=== PATIENT | female | born 1965 ===

== ENCOUNTER 2016-10-13 07:46 | Observation (INO) | payer OTHER ==
--- NOTE | 2016-10-13 08:18 | ED PDOC ---
HPI: Chest Pain Time Seen by Provider: 10/13/16 07:54 Chief Complaint (Nursing): Chest Pain Chief Complaint (Provider): Chest Pain History Per: Patient History/Exam Limitations: no limitations Onset/Duration Of Symptoms: Days Current Symptoms Are (Timing): Still Present Severity: Moderate Quality: Pressure, "Pain" Associated Symptoms: Dyspnea Modifying Factors: None Exacerbating Factors: None Alleviating Factors: None Additional Complaint(s): Patient is a 51 year old female who presents to ED for mid sternal chest pain that started 2 days ago but worsened this morning. Patient reports that initially for 2 days, pain was interment, believed to be acid reflux and taking Tums. This morning pain worsened, felt like pressure on her chest with mild SOB , headache, left arm/leg numbness, generalized weakness and dizziness. Patient denies fever, sore throat or runny nose but reports a mild cough that began yesterday. Patient also reports that the pain radiates into the back, ASA taken last night. PMD: [facility] Past Medical History Reviewed: Historical Data, Nursing Documentation, Vital Signs Vital Signs: Last Vital Signs Temp 97 F L 10/13/16 07:56 Pulse 84 10/13/16 11:48 Resp 20 10/13/16 07:56 BP 180/108 H 10/13/16 07:56 Pulse Ox 98 10/13/16 11:48 - Medical History PMH: HTN Other PMH: Heart Murmur, Sarcordosis - Surgical History Surgical History: Appendectomy - Family History Family History: States: Other (Mother: Lung CA) - Living Arrangements Living Arrangements: With Family - Social History Current smoker - smoking cessation education provided: Yes Alcohol: None Drugs: Denies - Immunization History Hx Tetanus Toxoid Vaccination: No Hx Influenza Vaccination: No Hx Pneumococcal Vaccination: No - Home Medications Home Medications: Ambulatory Orders Medication Instructions Recorded Lisinopril [Zestril] 1 tab PO DAILY 10/13/16 - Allergies Allergies/Adverse Reactions: Allergies Allergy/AdvReac Type Severity Reaction Status Date / Time clarithromycin [From Biaxin] Allergy RASH Verified 10/13/16 07:56 ALLI Risk Score for UA/NSTEMI - ALLI Risk Score Age > 64: NO 3 or more CAD Risk Factors: NO Known CAD (Stenosis greater than 50%): NO Aspirin use in past 7 days: YES Severe Angina: NO EKG ST changes greater than 0.5mm: NO Positive Cardiac Marker: NO ALLI Score: 1 Risk %: 5% Wells Criteria for PE - Wells Criteria for Pulmonary Embolism Clinical Signs and Symptoms of DVT: No P.E is #1 Diagnosis, or Equally Likely: No Heart Rate >100: No Immobilization at least 3 days;Surgery previous 4 weeks: No Previous, objectively diagnosed PE or DVT: No Hemoptysis: No Malignancy w/treatment within 6 months, or palliative: No Total Score: 0 Review of Systems ROS Statement: Except As Marked, All Systems Reviewed And Found Negative Constitutional: Positive for: Weakness (generalized ). Negative for: Fever, Chills Eyes: Negative for: Vision Change Cardiovascular: Positive for: Chest Pain. Negative for: Palpitations, Light Headedness Respiratory: Positive for: Cough, Shortness of Breath Gastrointestinal: Negative for: Nausea, Vomiting Musculoskeletal: Positive for: Arm Pain, Leg Pain. Negative for: Neck Pain, Back Pain Neurological: Positive for: Headache, Dizziness. Negative for: Weakness, Numbness Physical Exam - Reviewed Nursing Documentation Reviewed: Yes Vital Signs Reviewed: Yes - Physical Exam Appears: Positive for: Uncomfortable (tearful ) Skin: Positive for: Normal Color, Warm Eye Exam: Positive for: Normal appearance Neck: Positive for: Normal, Painless ROM, Supple Cardiovascular/Chest: Positive for: Regular Rate, Rhythm, Chest Non Tender. Negative for: JVD Respiratory: Positive for: Normal Breath Sounds. Negative for: Rales, Respiratory Distress Back: Positive for: Normal Inspection Extremity: Positive for: Normal ROM. Negative for: Pedal Edema, Calf Tenderness Neurologic/Psych: Positive for: Alert, Oriented. Negative for: Motor/Sensory Deficits - Laboratory Results Result Diagrams: 10/13/16 08:22 10/13/16 08:22 - ECG ECG: Positive for: Interpreted By Ma ECG Rhythm: Positive for: Normal QRS, Normal ST Segment, Sinus Rhythm. Negative for: ST/T Changes Rate: 84 O2 Sat by Pulse Oximetry: 98 (RA) Pulse Ox Interpretation: Normal Medical Decision Making Medical Decision Making: Time: 809 Initial impression: Chest pain r/o ACS, PE and anxiety Initial plan: -- EKG -- BMP -- Troponin -- Urine preg -- CBC -- D-Dimer -- CXR -- consumer loan manager Time: 919 Blood work reviewed Hematology and Chemistry normal D-Dimer elevated Plan: -- CT-angio chest Time: 1050 CT results PROCEDURE: CT Chest with contrast (Pulmonary Angiogram) HISTORY: Chest pain COMPARISON: Plain radiographs performed the same day TECHNIQUE: Axial computed tomography images were obtained of the chest in the pulmonary arterial phase of enhancement. Coronal and sagittal reformatted images were created and reviewed. Intravenous contrast dose: 95 mL Visipaque 320 Radiation dose: Total exam DLP = 409.08 mGy-cm. FINDINGS: PULMONARY ARTERIES: There are no filling defects in the pulmonary arteries or branches to suggest acute pulmonary embolism. AORTA: The aorta is normal in caliber. No evidence of aneurysm or dissection. LUNGS: There is a 11 x 7 x 12 mm subpleural nodule in the anterior segment of the right upper lobe (series 5, image 36). Lungs are well inflated and clear without consolidation or mass. There is linear atelectasis/ scarring in the lingula and bibasilar atelectasis. PLEURAL SPACES: No effusion or pneumothorax. HEART: No cardiomegaly. No significant pericardial effusion. LYMPH NODES: No pathologic lymphadenopathy. BONES, CHEST WALL: Within normal limits for the patient's age. No fracture or destructive lesion OTHER FINDINGS: The right adrenal gland is normal. There is a 23 mm adenoma in the left adrenal gland. IMPRESSION: 1. No CT evidence for acute pulmonary embolism, aortic aneurysm or aortic dissection. 2. 11 x 7 x 12 mm subpleural nodule in the anterior segment of the right upper lobe could represent focal pleural thickening however neoplasm cannot be excluded. Correlation with PET CT/histopathology is advised for further characterization. Scribe Attestation: Documented by Ramona Melton acting as a scribe for Yonathan Benitez MD MD Scribe Attestation: All medical record entries made by the Scribe were at my direction and personally dictated by me. I have reviewed the chart and agree that the record accurately reflects my personal performance of the history, physical exam, medical decision making, and the department course for this patient. I have also personally directed, reviewed, and agree with the discharge instructions and disposition. Disposition - Clinical Impression Clinical Impression: Chest pain, Pulmonary nodule - Patient ED Disposition Is Patient to be Admitted: Yes Discussed With : Colette García Doctor Will See Patient In The: ED Counseled Patient/Family Regarding: Studies Performed, Diagnosis - Disposition Disposition Time: 11:30 Condition: FAIR - Pt Status Changed To: Hospital Disposition Of: Observation - POA Present On Arrival: None
[2016-10-13 08:25] LABS: BASO # 0.1 K/uL (0.0-0.2); BASO % 0.8 % (0.0-2.0); EOS # 0.2 K/uL (0.0-0.7); EOS % 2.6 % (0.0-4.0); HEMATOCRIT 36.9 % (34.0-47.0); LYMPH # 2.1 K/uL (1.0-4.3); LYMPH % 26.3 % (20.0-40.0); MEAN CELL VOLUME 84.3 fl (81.0-99.0); MEAN CORPUSCULAR HEMOGLOBIN 28.4 pg (27.0-31.0); MEAN CORPUSCULAR HGB CONC 33.7 g/dL (33.0-37.0); MEAN PLATELET VOLUME 8.1 fl (7.2-11.7); MONO # 0.9 K/uL (0.0-0.8); MONO % 10.9 % (0.0-10.0); NEUT # 4.8 K/uL (1.8-7.0); NEUT % 59.4 % (50.0-75.0); NRBC % 0.2 % (0.0-0.0); RED CELL DISTRIBUTION WIDTH 14.2 % (11.5-14.5); WHITE BLOOD COUNT 8.1 K/uL (4.8-10.8)
[2016-10-13 08:35] LABS: BLOOD UREA NITROGEN 17 mg/dl (7-17); CALCIUM 10.2 mg/dL (8.4-10.2); CARBON DIOXIDE 23 mmol/L (22-30); CHLORIDE 105 mmol/L (98-107); GFR AFRICAN-AMERICAN > 60; GLUCOSE,RANDOM 92 mg/dL (65-105); POTASSIUM 3.9 MMOL/L (3.6-5.0); SODIUM 141 mmol/l (132-148)
[2016-10-13] MEDS ORDERED: Iodixanol 320 MG/ML 100 ML BOTTLE IV ONE (09:29)
[2016-10-13] MEDS ORDERED: Sodium Chloride 0.9% 50 ML IV ONE (09:30)
--- NOTE | 2016-10-13 09:47 | RAD ---
HISTORY: chest pain COMPARISON: No prior. FINDINGS: LUNGS: No active pulmonary disease. PLEURA: No significant pleural effusion identified, no pneumothorax apparent. CARDIOVASCULAR: Normal. OSSEOUS STRUCTURES: No significant abnormalities. VISUALIZED UPPER ABDOMEN: Normal. OTHER FINDINGS: None. IMPRESSION: No active disease.
--- NOTE | 2016-10-13 10:55 | CT ---
PROCEDURE: CT Chest with contrast (Pulmonary Angiogram) HISTORY: Chest pain COMPARISON: Plain radiographs performed the same day TECHNIQUE: Axial computed tomography images were obtained of the chest in the pulmonary arterial phase of enhancement. Coronal and sagittal reformatted images were created and reviewed. Intravenous contrast dose: 95 mL Visipaque 320 Radiation dose: Total exam DLP = 409.08 mGy-cm. FINDINGS: PULMONARY ARTERIES: There are no filling defects in the pulmonary arteries or branches to suggest acute pulmonary embolism. AORTA: The aorta is normal in caliber. No evidence of aneurysm or dissection. LUNGS: There is a 11 x 7 x 12 mm subpleural nodule in the anterior segment of the right upper lobe (series 5, image 36). Lungs are well inflated and clear without consolidation or mass. There is linear atelectasis/ scarring in the lingula and bibasilar atelectasis. PLEURAL SPACES: No effusion or pneumothorax. HEART: No cardiomegaly. No significant pericardial effusion. LYMPH NODES: No pathologic lymphadenopathy. BONES, CHEST WALL: Within normal limits for the patient's age. No fracture or destructive lesion OTHER FINDINGS: The right adrenal gland is normal. There is a 23 mm adenoma in the left adrenal gland. IMPRESSION: 1. No CT evidence for acute pulmonary embolism, aortic aneurysm or aortic dissection. 2. 11 x 7 x 12 mm subpleural nodule in the anterior segment of the right upper lobe could represent focal pleural thickening however neoplasm cannot be excluded. Correlation with PET CT/histopathology is advised for further characterization.
--- NOTE | 2016-10-13 12:52 | CARD ---
APPROVED REPORT EKG Measurement Heart [id number] <Conclusion> Normal sinus rhythm Nonspecific ST abnormality Abnormal ECG
--- NOTE | 2016-10-13 14:08 | CP.PCM.HP ---
History of Present Illness - History of Present Illness History of Present Illness: 51 year old female with a history of HTN presenting for evaluation of chest pain. She reports left sided chest pain that has been progressively worsening over the last week. 6-01/23, cramping, no radiation, involving mid and upper left chest. Denies history of trauma. No shortness of breath, diaphoresis, dyspnea on exertion, recent changes in exercise tolerance, orthopnea, LE edema, nocturia, palpitations, pleurisy. Afebrile. No cough or sputum production. Reports recent viral gastroenteritis 1.5 weeks prior. Has not taken any medications as outpatient in order to alleviate symptoms. Denies sick contacts. No recent surgeries. No periods of immobilization. No recent travel. Present on Admission - Present on Admission Any Indicators Present on Admission: No Review of Systems - Review of Systems Review of Systems: As per HPI. Past Patient History - Past Social History Alcohol: None Drugs: Denies - CARDIAC Hx Cardiac Disorders: Yes (htn,heart murmur) - PULMONARY Hx Respiratory Disorders: No - NEUROLOGICAL Hx Neurological Disorder: No - HEENT Hx HEENT Problems: No - RENAL Hx Chronic Kidney Disease: No - ENDOCRINE/METABOLIC Hx Endocrine Disorders: Yes (sarcoidosis) - HEMATOLOGICAL/ONCOLOGICAL Hx Blood Disorders: No - INTEGUMENTARY Hx Dermatological Problems: No - MUSCULOSKELETAL/RHEUMATOLOGICAL Hx Musculoskeletal Disorders: No - GENITOURINARY/GYNECOLOGICAL Hx Genitourinary Disorders: No - PSYCHIATRIC Hx Psychophysiologic Disorder: No - SURGICAL HISTORY Hx Appendectomy: Yes - ANESTHESIA Hx Anesthesia: Yes Hx Anesthesia Reactions: No Meds Allergies/Adverse Reactions: Allergies Allergy/AdvReac Type Severity Reaction Status Date / Time clarithromycin [From Biaxin] Allergy RASH Verified 10/13/16 07:56 Physical Exam - Head Exam Head Exam: ATRAUMATIC, NORMOCEPHALIC - Eye Exam Eye Exam: EOMI, Normal appearance - ENT Exam ENT Exam: Mucous Membranes Moist - Neck Exam Neck exam: Positive for: Full Rom. Negative for: Lymphadenopathy - Respiratory Exam Respiratory Exam: Chest Wall Tenderness (Midternal and left upper chest, pectoral distribution), NORMAL BREATHING PATTERN. absent: Rales, Rhonchi, Wheezes - Cardiovascular Exam Cardiovascular Exam: REGULAR RHYTHM, +S1, +S2. absent: Diastolic murmur, Systolic Murmur - GI/Abdominal Exam GI & Abdominal Exam: Normal Bowel Sounds, Soft. absent: Distended, Tenderness - Extremities Exam Extremities exam: Positive for: full ROM, normal capillary refill, normal inspection, pedal pulses present. Negative for: calf tenderness, joint swelling , pedal edema, tenderness - Back Exam Back exam: absent: CVA tenderness (L), CVA tenderness (R) - Neurological Exam Neurological exam: Alert, CN II-XII Intact, Normal Gait, Oriented x3 Results - Vital Signs Recent Vital Signs: Last Vital Signs Temp 97 F L 10/13/16 07:56 Pulse 84 10/13/16 13:35 Resp 19 10/13/16 10:00 BP 133/89 10/13/16 10:00 Pulse Ox 98 10/13/16 11:48 - Labs Result Diagrams: 10/13/16 08:22 10/13/16 08:22 Assessment & Plan - Assessment and Plan (Free Text) Plan: 51 year old female with a history of chest pain, x1 week, worsening, 6-7/10, nonradiating, cramping. 1. Chest pain Likely MSK related Reproducible Afebrile No leukocytosis ASA given in ER Trop x1 negative CTA reviewed- low prob. for PE [id number] nodule (right, subpleural) Follow up tropx2 EKG reviewed WNL- NSR, no acute changes CXR- reviewed WNL Patient will need outpatient Bx Consider PET CT as outpatient Toradol PRN for pain 2. HTN, controlled Continue home medications 3. DVT Px SCDs
[2016-10-14 08:54] VITALS: RESP 18
--- NOTE | 2016-10-14 13:36 | CP.PCM.PN ---
<Alan Randle - Last Filed: 10/14/16 14:01> Subjective - Date & Time of Evaluation Date of Evaluation: 10/14/16 Time of Evaluation: 07:45 - Subjective Subjective: PT seen resting in bed. She states she didn't sleep well last night because of nausea and headache. Chest pain has subsided with medication. She denies any SOB, fever, or chills over night. Has been tolerating PO intake. Have discussed with the patient the findings on the CT scan and expressed the importance of follow up Pet scan/Biopsy. Objective - Vital Signs/Intake and Output Vital Signs (last 24 hours): Temp Pulse Resp BP Pulse Ox 98.2 F 58 L 18 120/79 97 10/14/16 08:00 10/14/16 09:00 10/14/16 08:00 10/14/16 08:22 10/14/16 08:00 - Medications Medications: Current Medications Lisinopril (Zestril) 10 mg PO DAILY SEJAL Last Admin: 10/14/16 08:22 Dose: 10 mg - Constitutional Appears: No Acute Distress - Head Exam Head Exam: NORMAL INSPECTION - Eye Exam Eye Exam: Normal appearance - Respiratory Exam Respiratory Exam: Clear to Ausculation Bilateral, NORMAL BREATHING PATTERN - Cardiovascular Exam Cardiovascular Exam: REGULAR RHYTHM, +S1, +S2 - Neurological Exam Neurological Exam: Alert, Awake, CN II-XII Intact, Oriented x3 - Additional Findings Additional findings: Reproducible chest pain, tender to palpate over left side of the chest Assessment and Plan - Assessment and Plan (Free Text) Assessment: 51 year old female with a history of chest pain, x1 week, worsening, 6-7/10, nonradiating, cramping. 1. Chest pain Likely MSK related ACS has been ruled out with Tropon x 3 negative Reproducible CTA reviewed- low prob. for PE [id number] nodule (right, subpleural) EKG reviewed WNL- NSR, no acute changes CXR- reviewed WNL Toradol PRN for pain 2. Incidental Lung nodule - CTA reviewed- [id number] nodule (right, subpleural) - Spoke to IR: Difficult to preform biopsy due to blood supply in mammary region. - Pet Scan vs Biopsy - Dr. Gomes consulted 3. HTN, controlled Continue home medications 4. Migraine - Regalan 10 mg PRN - Ibuprofen 600 mg PRN pain 3. DVT Px SCDs <Sole Blood - Last Filed: 10/14/16 14:04> Subjective - Date & Time of Evaluation Date of Evaluation: 10/14/16 Objective - Vital Signs/Intake and Output Vital Signs (last 24 hours): Temp Pulse Resp BP Pulse Ox 98.2 F 58 L 18 120/79 97 10/14/16 08:00 10/14/16 09:00 10/14/16 08:00 10/14/16 08:22 10/14/16 08:00 - Medications Medications: Current Medications Ibuprofen (Motrin Tab) 600 mg PO Q6 PRN PRN Reason: Headache Lisinopril (Zestril) 10 mg PO DAILY SEJAL Last Admin: 10/14/16 08:22 Dose: 10 mg Metoclopramide HCl (Reglan) 10 mg PO Q8 SEJAL - Skin Additional comments: ATTESTATION Attending note. Patient seen and examined. Case discussed with resident. Agree with plan.
--- NOTE | 2016-10-14 14:31 | CP.PCM.DIS ---
<Alan Randle - Last Filed: 10/14/16 18:29> Provider - Provider Date of Admission: 10/13/16 11:33 Attending physician: Colette García MD Time Spent in preparation of Discharge (in minutes): 30 Hospital Course - Lab Results Lab Results: Most Recent Lab Values WBC 8.1 K/uL (4.8-10.8) 10/13/16 08:22 RBC 4.38 Mil/uL (3.80-5.20) 10/13/16 08:22 Hgb 12.4 g/dL (12.0-16.0) 10/13/16 08:22 Hct 36.9 % (34.0-47.0) 10/13/16 08:22 MCV 84.3 fl (81.0-99.0) 10/13/16 08:22 MCH 28.4 pg (27.0-31.0) 10/13/16 08:22 MCHC 33.7 g/dL (33.0-37.0) 10/13/16 08:22 RDW 14.2 % (11.5-14.5) 10/13/16 08:22 Plt Count 328 K/uL (130-400) 10/13/16 08:22 MPV 8.1 fl (7.2-11.7) 10/13/16 08:22 Neut % (Auto) 59.4 % (50.0-75.0) 10/13/16 08:22 Lymph % (Auto) 26.3 % (20.0-40.0) 10/13/16 08:22 [place] % (Auto) 10.9 % (0.0-10.0) H 10/13/16 08:22 Eos % (Auto) 2.6 % (0.0-4.0) 10/13/16 08:22 Baso % (Auto) 0.8 % (0.0-2.0) 10/13/16 08:22 Neut # 4.8 K/uL (1.8-7.0) 10/13/16 08:22 Lymph # 2.1 K/uL (1.0-4.3) 10/13/16 08:22 [place] # 0.9 K/uL (0.0-0.8) H 10/13/16 08:22 Eos # 0.2 K/uL (0.0-0.7) 10/13/16 08:22 Baso # 0.1 K/uL (0.0-0.2) 10/13/16 08:22 D-Dimer, Quantitative 0.83 mg/L FEU (0-0.50) H 10/13/16 08:22 Sodium 141 mmol/l (132-148) 10/13/16 08:22 Potassium 3.9 MMOL/L (3.6-5.0) 10/13/16 08:22 Chloride 105 mmol/L (98-107) 10/13/16 08:22 Carbon Dioxide 23 mmol/L (22-30) 10/13/16 08:22 Anion Gap 18 (10-20) 10/13/16 08:22 BUN 17 mg/dl (7-17) 10/13/16 08:22 Creatinine 0.7 mg/dL (0.7-1.2) 10/13/16 08:22 Est GFR ( Amer) > 60 10/13/16 08:22 Est GFR (Non-Af Amer) > 60 10/13/16 08:22 Random Glucose 92 mg/dL (65-105) 10/13/16 08:22 Calcium 10.2 mg/dL (8.4-10.2) 10/13/16 08:22 Troponin I < 0.0120 ng/mL (0.00-0.120) 10/14/16 00:05 - Hospital Course Hospital Course: 51 YO F w/ h/o HTN presents was admitted for chest pain and was worked up thoroughly - Workup: ACS has been ruled out with Tropon x 3 negative Reproducible CTA reviewed- low prob. for PE [id number] nodule (right, subpleural) EKG reviewed WNL- NSR, no acute changes CXR- reviewed WNL Pt has been ruled out for ACS. She is feeling better, pain is relieved with medication. Patient is stable for discharge. - Take naproxen 500mg for pain - F/U with [facility] on 10/28/16 @ 1:20 W/ Dr. Persaud - F/U with [facility] to get PET scan of chest - F/U with Dr. Gomes outpatient Discharge Exam - Head Exam Head Exam: NORMAL INSPECTION - Eye Exam Eye Exam: Normal appearance - Respiratory Exam Respiratory Exam: Clear to PA & Lateral, NORMAL BREATHING PATTERN - Cardiovascular Exam Cardiovascular Exam: REGULAR RHYTHM, +S1, +S2 Additional comments: Left sided tenderness on palpation - GI/Abdominal Exam GI & Abdominal Exam: Normal Bowel Sounds. absent: Tenderness - Neurological Exam Neurological exam: CN II-XII Intact, Oriented x3 Discharge Plan - Discharge Medications Prescriptions: Naproxen [Naprosyn] 500 mg PO Q12 #28 tablet - Follow Up Plan Condition: GOOD Disposition: HOME/ ROUTINE Instructions: Chest Pain (DC) Additional Instructions: - Patient is stable for discharge. - Take naproxen 500mg for pain - F/U with [facility] on 10/28/16 @ 1:20 W/ Dr. Persaud - F/U with [facility] to get PET scan of chest - F/U with Dr. Gomes outpatient - If symptoms worsen return to the ER Referrals: [facility] [Outside] Fei Gomes MD [Staff Provider] - <Sole Blood - Last Filed: 10/15/16 09:14> Provider - Provider Date of Admission: 10/13/16 11:33 Attending physician: Colette García MD Hospital Course - Lab Results Lab Results: Most Recent Lab Values WBC 8.1 K/uL (4.8-10.8) 10/13/16 08:22 RBC 4.38 Mil/uL (3.80-5.20) 10/13/16 08:22 Hgb 12.4 g/dL (12.0-16.0) 10/13/16 08:22 Hct 36.9 % (34.0-47.0) 10/13/16 08:22 MCV 84.3 fl (81.0-99.0) 10/13/16 08:22 MCH 28.4 pg (27.0-31.0) 10/13/16 08:22 MCHC 33.7 g/dL (33.0-37.0) 10/13/16 08:22 RDW 14.2 % (11.5-14.5) 10/13/16 08:22 Plt Count 328 K/uL (130-400) 10/13/16 08:22 MPV 8.1 fl (7.2-11.7) 10/13/16 08:22 Neut % (Auto) 59.4 % (50.0-75.0) 10/13/16 08:22 Lymph % (Auto) 26.3 % (20.0-40.0) 10/13/16 08:22 [place] % (Auto) 10.9 % (0.0-10.0) H 10/13/16 08:22 Eos % (Auto) 2.6 % (0.0-4.0) 10/13/16 08:22 Baso % (Auto) 0.8 % (0.0-2.0) 10/13/16 08:22 Neut # 4.8 K/uL (1.8-7.0) 10/13/16 08:22 Lymph # 2.1 K/uL (1.0-4.3) 10/13/16 08:22 [place] # 0.9 K/uL (0.0-0.8) H 10/13/16 08:22 Eos # 0.2 K/uL (0.0-0.7) 10/13/16 08:22 Baso # 0.1 K/uL (0.0-0.2) 10/13/16 08:22 D-Dimer, Quantitative 0.83 mg/L FEU (0-0.50) H 10/13/16 08:22 Sodium 141 mmol/l (132-148) 10/13/16 08:22 Potassium 3.9 MMOL/L (3.6-5.0) 10/13/16 08:22 Chloride 105 mmol/L (98-107) 10/13/16 08:22 Carbon Dioxide 23 mmol/L (22-30) 10/13/16 08:22 Anion Gap 18 (10-20) 10/13/16 08:22 BUN 17 mg/dl (7-17) 10/13/16 08:22 Creatinine 0.7 mg/dL (0.7-1.2) 10/13/16 08:22 Est GFR ( Amer) > 60 10/13/16 08:22 Est GFR (Non-Af Amer) > 60 10/13/16 08:22 Random Glucose 92 mg/dL (65-105) 10/13/16 08:22 Calcium 10.2 mg/dL (8.4-10.2) 10/13/16 08:22 Troponin I < 0.0120 ng/mL (0.00-0.120) 10/14/16 00:05 Discharge Exam - Skin Additional comments: ATTESTATION ATTENDING STATEMENT - PATIENT SEEN AND EXAMINED. CASE DISCUSSED WITH RESIDENT AND AGREE WITH PLAN. PATIENT DISCHARGED TO OUTPATIENT FOLLOW UP.
[2016-10-14 15:23] VITALS: BP 159/98; PULSE 74; TEMP 98; O2SAT 99
--- NOTE | 2016-10-15 21:32 | CP.PCM.CON ---
History of Present Illness - History of Present Illness History of Present Illness: 51 year old female with a history of tobacco abuse, HTN, sarcoidosis, admitted with chest pain, found to have a lung mass. The patient denies shortness of breath and cough. Her weight is stable and maintains a good appetite. CT chest revealed a RUL 1.2cm subpleural based nodule. Past medical history: tobacco abuse, HTN, sarcoidosis Past surgical history: none Family history: Sister with breast cancer in her 40s, sister with breast cancer and ovarian cancer in 40s Social history: 1/2pppd x 20 years, denies alcohol, and illicit drug use. Allergies: Clarithromycin Review of systems: All remaining review of systems including HEENT, cardiovascular, respiratory, gastrointestinal, genitourinary, musculoskeletal, dermatologic, neurologic, and psychiatric are negative unless mentioned in the HPI. Past Patient History - Past Social History Alcohol: None Drugs: Denies - CARDIAC Hx Cardiac Disorders: Yes (htn,heart murmur) - PULMONARY Hx Respiratory Disorders: No - NEUROLOGICAL Hx Neurological Disorder: No - HEENT Hx HEENT Problems: No - RENAL Hx Chronic Kidney Disease: No - ENDOCRINE/METABOLIC Hx Endocrine Disorders: Yes (sarcoidosis) - HEMATOLOGICAL/ONCOLOGICAL Hx Blood Disorders: No - INTEGUMENTARY Hx Dermatological Problems: No - MUSCULOSKELETAL/RHEUMATOLOGICAL Hx Musculoskeletal Disorders: No - GENITOURINARY/GYNECOLOGICAL Hx Genitourinary Disorders: No - PSYCHIATRIC Hx Psychophysiologic Disorder: No - SURGICAL HISTORY Hx Appendectomy: Yes - ANESTHESIA Hx Anesthesia: Yes Hx Anesthesia Reactions: No Meds Home Medications: Home Medication List Medication Instructions Recorded Confirmed Type Naproxen [Naprosyn] 500 mg PO Q12 #28 tablet 10/14/16 Rx Allergies/Adverse Reactions: Allergies Allergy/AdvReac Type Severity Reaction Status Date / Time clarithromycin [From Biaxin] Allergy RASH Verified 10/13/16 07:56 Physical Exam - Head Exam Head Exam: ATRAUMATIC - Eye Exam Eye Exam: Normal appearance - ENT Exam ENT Exam: Mucous Membranes Dry - Respiratory Exam Respiratory Exam: NORMAL BREATHING PATTERN - Cardiovascular Exam Cardiovascular Exam: +S1, +S2 - GI/Abdominal Exam GI & Abdominal Exam: Normal Bowel Sounds - Extremities Exam Extremities exam: Positive for: normal inspection - Neurological Exam Neurological exam: Oriented x3 - Psychiatric Exam Psychiatric exam: Normal Affect, Normal Mood - Skin Skin Exam: Warm Results - Vital Signs Recent Vital Signs: Last Vital Signs Temp 98.0 F 03/31/17 12:00 Pulse 74 10/14/16 12:00 Resp 18 10/14/16 12:00 BP 159/98 H 10/14/16 12:00 Pulse Ox 99 10/14/16 12:00 - Labs Result Diagrams: 10/13/16 08:22 10/13/16 08:22 Assessment & Plan - Assessment and Plan (Free Text) Assessment: Lung nodule - recommend IR biopsy Tobacco abuse - discussed smoking cessation at length with the patient Family history of breast/ovarian cancer - recommend the patient be offered BRCA testing Thank you for this interesting consult.
== END 2016-10-14 16:15 | disposition home or self-care (01) ==
LOC: H.ER 07:46 → H.ERHOLD 11:33 → H.TEL 13:50
PROVIDERS: ADMIT Family Medicine Geriatric Medicine; ATTEND Family Medicine Geriatric Medicine
DX: R07.9 Chest pain, unspecified (principal); R91.1 Solitary pulmonary nodule; I10 Essential (primary) hypertension; D86.9 Sarcoidosis, unspecified; F17.200 Nicotine dependence, unspecified, uncomplicated; Z80.3 Family history of malignant neoplasm of breast; Z80.41 Family history of malignant neoplasm of ovary; G43.909 Migraine, unspecified, not intractable, without status migrainosus

== ENCOUNTER 2017-03-22 12:38 | Observation (INO) | payer SELFPAY ==
[2017-03-22 13:47] LABS: BASO # 0.1 K/uL (0.0-0.2); BASO % 0.8 % (0.0-2.0); EOS # 0.2 K/uL (0.0-0.7); EOS % 2.2 % (0.0-4.0); HEMATOCRIT 40.1 % (34.0-47.0); LYMPH # 1.6 K/uL (1.0-4.3); MEAN CELL VOLUME 86.6 fl (81.0-99.0); MEAN CORPUSCULAR HEMOGLOBIN 28.9 pg (27.0-31.0); MEAN CORPUSCULAR HGB CONC 33.3 g/dL (33.0-37.0); MEAN PLATELET VOLUME 7.8 fl (7.2-11.7); MONO # 0.7 K/uL (0.0-0.8); NEUT # 4.6 K/uL (1.8-7.0); NRBC % 0.1 % (0.0-0.0); RED CELL DISTRIBUTION WIDTH 14.2 % (11.5-14.5); WHITE BLOOD COUNT 7.1 K/uL (4.8-10.8)
[2017-03-22 14:00] LABS: ALB/GLOB RATIO 1.2 (1.0-2.1); ALKALINE PHOSPHATASE 62 U/L (38-126); ALT/SGPT 19 U/L (9-52); AST/SGOT 39 U/L (14-36); BILIRUBIN,TOTAL 1.1 mg/dl (0.2-1.3); BLOOD UREA NITROGEN 15 mg/dl (7-17); CALCIUM 10.8 mg/dL (8.4-10.2); CARBON DIOXIDE 23 mmol/L (22-30); CHLORIDE 101 mmol/L (98-107); GFR AFRICAN-AMERICAN > 60; GLUCOSE,RANDOM 101 mg/dL (65-105); SODIUM 137 mmol/l (132-148); TOTAL PROTEIN 9.8 G/DL (6.3-8.2)
[2017-03-22 14:14] LABS: POTASSIUM 4.7 MMOL/L (3.6-5.0)
--- NOTE | 2017-03-22 14:37 | RAD ---
HISTORY: COMPARISON: 10/13/2016. TECHNIQUE: Chest PA and lateral FINDINGS: LINES AND TUBES: None. LUNG AND PLEURA: The lungs are well inflated and clear. HEART AND MEDIASTINUM: The heart is not enlarged. The hilar and mediastinal contours are within normal limits. SKELETAL STRUCTURES: The bony structures are within normal limits for the patient's age. VISUALIZED UPPER ABDOMEN: Normal. OTHER FINDINGS: There is chronic elevation of the left hemidiaphragm. IMPRESSION: No active pulmonary disease.
--- NOTE | 2017-03-22 15:11 | ED PDOC ---
HPI: Chest Pain Time Seen by Provider: 03/22/17 13:00 Chief Complaint (Nursing): Chest Pain Chief Complaint (Provider): chest pain History Per: Patient History/Exam Limitations: no limitations Onset/Duration Of Symptoms: Days (x 3) Additional Complaint(s): Sheela Gaston is a 51 year old female, with a previous medical history of anxiety and ovarian cysts, who presents to ED for left sided chest pain ongoing for 3 days. She reports chest pain is now radiating to the right side of her chest. She denies any shortness of breath, fever, chills, cough, vomiting or abdominal pain. She also reports a headache which she states is consistent with previous headaches. Family reports that patient has been exposed to higher levels of stress causing her to become more anxious lately. PMD: none provided Past Medical History Reviewed: Historical Data, Nursing Documentation, Vital Signs Vital Signs: Last Vital Signs Temp 97.9 F 03/23/17 12:20 Pulse 63 03/23/17 12:20 Resp 18 03/23/17 12:20 BP 105/71 03/23/17 12:20 Pulse Ox 98 03/23/17 14:40 - Medical History PMH: Anxiety, HTN Denies: Chronic Kidney Disease - Surgical History Surgical History: Appendectomy - Family History Family History: States: Unknown Family Hx - Social History Current smoker - smoking cessation education provided: No Alcohol: None Drugs: Denies - Immunization History Hx Tetanus Toxoid Vaccination: No Hx Influenza Vaccination: No Hx Pneumococcal Vaccination: No - Home Medications Home Medications: Ambulatory Orders Medication Instructions Recorded HCTZ/Losartan Potassium [Hyzaar 1 tab PO DAILY 03/22/17 12.5 mg-50 mg] Naproxen [Naprosyn] 500 mg PO BID PRN 03/22/17 - Allergies Allergies/Adverse Reactions: Allergies Allergy/AdvReac Type Severity Reaction Status Date / Time clarithromycin [From Biaxin] Allergy RASH Verified 10/13/16 07:56 Review of Systems ROS Statement: Except As Marked, All Systems Reviewed And Found Negative Constitutional: Negative for: Fever, Chills Cardiovascular: Positive for: Chest Pain Respiratory: Negative for: Cough, Shortness of Breath Gastrointestinal: Negative for: Vomiting, Abdominal Pain Physical Exam - Reviewed Nursing Documentation Reviewed: Yes Vital Signs Reviewed: Yes - Physical Exam Appears: Positive for: Well, Non-toxic, No Acute Distress Cardiovascular/Chest: Positive for: Regular Rate, Rhythm, Chest Non Tender ( tenderness to the left chest wall) Respiratory: Positive for: CNT, Normal Breath Sounds Gastrointestinal/Abdominal: Positive for: Normal Exam, Bowel Sounds, Soft. Negative for: Tenderness Extremity: Positive for: Normal ROM Neurologic/Psych: Positive for: Alert, Oriented - Laboratory Results Result Diagrams: 03/23/17 05:00 03/23/17 05:00 - ECG O2 Sat by Pulse Oximetry: 98 (RA) Pulse Ox Interpretation: Normal Medical Decision Making Medical Decision Making: Initial Plan: chest pain rule out pneumonia rule out CAD rule out PE * CXR * troponin I * motrin 600 mg PO * reglan 10 mg IV * reevaluation Time: 1600 --Upon re-evaluation, patient has ongoing pain. --CT Angio Chest ordered to rule out pulmonary embolism. --Admitted to [facility] for chest pain. ASA ct shows no PE see full report pt to be admitted to [facility] for cardiac monitoring to rule out malignant arrhytmia Scribe Attestation: Documented by Elisa Lester, acting as a scribe for Deloris Paige MD. Provider Scribe Attestation: All medical record entries made by the Scribe were at my direction and personally dictated by me. I have reviewed the chart and agree that the record accurately reflects my personal performance of the history, physical exam, medical decision making, and the department course for this patient. I have also personally directed, reviewed, and agree with the discharge instructions and disposition. Disposition - Clinical Impression Clinical Impression: Acute chest pain - Patient ED Disposition Is Patient to be Admitted: Yes Counseled Patient/Family Regarding: Studies Performed, Diagnosis, Need For Followup - Disposition Disposition Time: 15:00 Condition: STABLE
[2017-03-22] MEDS ORDERED: Sodium Chloride 0.9% 50 ML IV ONE (17:12)
[2017-03-22] MEDS ORDERED: Iodixanol 320 MG/ML 100 ML BOTTLE IV ONE (17:12)
--- NOTE | 2017-03-22 18:20 | CT ---
PROCEDURE: CT Chest with contrast (Pulmonary Angiogram) HISTORY: Chest pain, rule out PE COMPARISON: Plain radiographs performed the same day and CT angio chest from 10/13/2016 TECHNIQUE: Axial computed tomography images were obtained of the chest in the pulmonary arterial phase of enhancement. Coronal and sagittal reformatted images were created and reviewed. Intravenous contrast dose: 80 mL Visipaque 320 Radiation dose: Total exam DLP = 384.64 mGy-cm. This CT exam was performed using one or more of the following dose reduction techniques: Automated exposure control, adjustment of the mA and/or kV according to patient size, and/or use of iterative reconstruction technique. FINDINGS: PULMONARY ARTERIES: There are no filling defects in the pulmonary arteries to suggest acute pulmonary embolism. AORTA: The aorta is not dilated. No thoracic aortic aneurysm. LUNGS: The lungs are well inflated. No mass or consolidation. There is linear atelectasis/scarring in the lingula and dependent atelectasis in the lower lobes. PLEURAL SPACES: No effusion or pneumothorax. HEART: The heart is normal in size. No pericardial effusion. LYMPH NODES: There are prominent subcentimeter mediastinal lymph nodes and mild bilateral hilar lymphadenopathy not significantly changed since the prior examination. BONES, CHEST WALL: Unremarkable. No fracture or destructive lesion OTHER FINDINGS: There is mild thickening of the adrenal glands without discrete nodules. Otherwise, the visualized abdominal structures are within normal limits. IMPRESSION: 1. No CT evidence for acute pulmonary embolism. 2. No evidence of consolidation, pneumothorax or pleural effusion. 3. Prominent subcentimeter mediastinal lymph nodes and mild hilar lymphadenopathy, nonspecific and may be reactive, infectious, or inflammatory in etiology. Clinical correlation and follow-up is advised
--- NOTE | 2017-03-22 19:11 | CP.PCM.HP ---
History of Present Illness - History of Present Illness History of Present Illness: CC/HPI: Pt. see in the E.D. Pt. presents to E.D. for evaluation of chest pain. Pt. states she was sleeping at home but was awoken by chest pain shortly before arrival to the E.D. via her boyfriend's car. Pt. states pain initially started on Monday and was intermittent but now is persistent since being awaken by the pain. Pain is described as pressure like in quality, localized to sternal area, and severe in intensity. Pt. denies any fall, trauma, injury, immobilization, recent surgery, leg swelling, fever, or chills. Pt. states has been taking Tyleno 325mgl 2 tabs, ASA 81mg 2tabs daily w/o relief. ROS: Pt. reports having heart burn since Monday as well and is taking 4 tums for it daily. Pt. denies any hemoptysis, hematemesis, melena, hematochezia, or abdominal pain. PMHx: Sarcodosis, HTN, Left ovarian cyst, Obesity, Gastritis PSHx: Appendectomy, Laprooscopy ScHx: TOB-occasional ETOH-occasional DRUG-none OBGHx: Period irregular, LMP on January 09 to February 15 (Urine preg negative) FMHx: Breast Cancer, Ovarian Cancer Allergies: Clarithromycin Home Meds: See med list PMD: [facility] E.D Course: * CXR * troponin I * motrin 600 mg PO * reglan 10 mg IV * reevaluation Time: 1600 --Upon re-evaluation, patient has ongoing pain. --CT Angio Chest ordered to rule out pulmonary embolism. Present on Admission - Present on Admission Any Indicators Present on Admission: No History of DVT/PE: No History of Uncontrolled Diabetes: No Urinary Catheter: No Decubitus Ulcer Present: No Review of Systems - Review of Systems Review of Systems: See HPI Past Patient History - Past Social History Smoking Status: Current Some Days Smoker - CARDIAC Hx Hypertension: Yes - PULMONARY Hx Respiratory Disorders: No - NEUROLOGICAL Hx Neurological Disorder: No - HEENT Hx HEENT Problems: No - RENAL Hx Chronic Kidney Disease: No - ENDOCRINE/METABOLIC Hx Endocrine Disorders: Yes (sarcoidosis) - HEMATOLOGICAL/ONCOLOGICAL Hx Blood Disorders: No - INTEGUMENTARY Hx Dermatological Problems: No - MUSCULOSKELETAL/RHEUMATOLOGICAL Hx Musculoskeletal Disorders: No - GENITOURINARY/GYNECOLOGICAL Hx Genitourinary Disorders: No - PSYCHIATRIC Hx Anxiety: Yes - SURGICAL HISTORY Hx Appendectomy: Yes - ANESTHESIA Hx Anesthesia: Yes Hx Anesthesia Reactions: No Meds Allergies/Adverse Reactions: Allergies Allergy/AdvReac Type Severity Reaction Status Date / Time clarithromycin [From Biaxin] Allergy RASH Verified 10/13/16 07:56 Physical Exam - Constitutional Appears: No Acute Distress - Eye Exam Eye Exam: Normal appearance. absent: Scleral icterus - ENT Exam ENT Exam: Mucous Membranes Moist - Neck Exam Neck exam: Positive for: Full Rom - Respiratory Exam Respiratory Exam: Clear to Auscultation Bilateral, NORMAL BREATHING PATTERN - Cardiovascular Exam Cardiovascular Exam: REGULAR RHYTHM, +S1, +S2 Additional comments: + Reproducible chest pain on palpation of left 3rd/4th costo-chondral junction - GI/Abdominal Exam GI & Abdominal Exam: Tenderness (Moderate epigastric tenderness). absent: Guarding, Rebound, Rigid - Extremities Exam Extremities exam: Positive for: normal capillary refill, normal inspection, pedal pulses present. Negative for: tenderness - Back Exam Back exam: muscle spasm. absent: CVA tenderness (L), CVA tenderness (R), paraspinal tenderness - Neurological Exam Neurological exam: Alert, Oriented x3 - Psychiatric Exam Psychiatric exam: Normal Affect, Normal Mood - Skin Skin Exam: Normal Color, Warm Results - Vital Signs Recent Vital Signs: Last Vital Signs Temp 98.9 F 03/22/17 18:34 Pulse 76 03/22/17 18:34 Resp 17 03/22/17 18:34 BP 134/84 03/22/17 18:34 Pulse Ox 98 03/22/17 18:34 - Labs Result Diagrams: 03/22/17 13:15 03/22/17 13:15 Assessment & Plan - Assessment and Plan (Free Text) Assessment: 51 y.o. female admitted for chest pain. Chest pain of unclear etiology most likely non-cardiac- CT-angiogram negative for Pulmonary Embolism CXR negative for any acute pathology 1- Admit to Tele 2- Troponin x 1 negative Repeat x 2 Q8 hrs 3- Repeat EKG in the a.m. Epigastric abdominal pain on physical 1- Pepcid 40mg IVP 2- CBC in the a.m. 3- BMP in the a.m. HTN 1- c/w Lisinopril-HCTHZ 50/12.5 DVT 1- SCD for now Diet 1- Heart Healthy/[place] diet
[2017-03-23 06:44] LABS: HEMATOCRIT 36.9 % (34.0-47.0); MEAN CELL VOLUME 86.7 fl (81.0-99.0); MEAN CORPUSCULAR HEMOGLOBIN 28.7 pg (27.0-31.0); MEAN CORPUSCULAR HGB CONC 33.1 g/dL (33.0-37.0); WHITE BLOOD COUNT 5.9 K/uL (4.8-10.8)
[2017-03-23 06:50] LABS: BLOOD UREA NITROGEN 19 mg/dl (7-17); CALCIUM 10.2 mg/dL (8.4-10.2); CARBON DIOXIDE 23 mmol/L (22-30); CHLORIDE 101 mmol/L (98-107); GFR AFRICAN-AMERICAN 58; GLUCOSE,RANDOM 89 mg/dL (65-105); POTASSIUM 3.9 MMOL/L (3.6-5.0); SODIUM 137 mmol/l (132-148)
[2017-03-23] MEDS ORDERED: HCTZ/Losartan 12.5/50 Tab PO SCH (09:00)
[2017-03-23 16:23] VITALS: BP 113/76; PULSE 84; RESP 14; TEMP 99; O2SAT 95
--- NOTE | 2017-03-23 17:10 | CP.PCM.DIS ---
Provider - Provider Date of Admission: 03/22/17 16:05 Attending physician: Colette García MD Primary care physician: [facility], Dr Harper. Consults: None. Time Spent in preparation of Discharge (in minutes): 30 Hospital Course - Lab Results Lab Results: Most Recent Lab Values WBC 5.9 K/uL (4.8-10.8) 03/23/17 05:00 RBC 4.26 Mil/uL (3.80-5.20) 03/23/17 05:00 Hgb 12.2 g/dL (12.0-16.0) 03/23/17 05:00 Hct 36.9 % (34.0-47.0) 03/23/17 05:00 MCV 86.7 fl (81.0-99.0) 03/23/17 05:00 MCH 28.7 pg (27.0-31.0) 03/23/17 05:00 MCHC 33.1 g/dL (33.0-37.0) 03/23/17 05:00 RDW 14.0 % (11.5-14.5) 03/23/17 05:00 Plt Count 298 K/uL (130-400) 03/23/17 05:00 MPV 7.8 fl (7.2-11.7) 03/22/17 13:15 Neut % (Auto) 65.0 % (50.0-75.0) 03/22/17 13:15 Lymph % (Auto) 22.0 % (20.0-40.0) 03/22/17 13:15 Coffee % (Auto) 10.0 % (0.0-10.0) 03/22/17 13:15 Eos % (Auto) 2.2 % (0.0-4.0) 03/22/17 13:15 Baso % (Auto) 0.8 % (0.0-2.0) 03/22/17 13:15 Neut # 4.6 K/uL (1.8-7.0) 03/22/17 13:15 Lymph # 1.6 K/uL (1.0-4.3) 03/22/17 13:15 Coffee # 0.7 K/uL (0.0-0.8) 03/22/17 13:15 Eos # 0.2 K/uL (0.0-0.7) 03/22/17 13:15 Baso # 0.1 K/uL (0.0-0.2) 03/22/17 13:15 Sodium 137 mmol/l (132-148) 03/23/17 05:00 Potassium 3.9 MMOL/L (3.6-5.0) 03/23/17 05:00 Chloride 101 mmol/L (98-107) 03/23/17 05:00 Carbon Dioxide 23 mmol/L (22-30) 03/23/17 05:00 Anion Gap 16 (10-20) 03/23/17 05:00 BUN 19 mg/dl (7-17) H 03/23/17 05:00 Creatinine 1.2 mg/dL (0.7-1.2) 03/23/17 05:00 Est GFR ( Amer) 58 03/23/17 05:00 Est GFR (Non-Af Amer) 48 03/23/17 05:00 Random Glucose 89 mg/dL (65-105) 03/23/17 05:00 Calcium 10.2 mg/dL (8.4-10.2) 03/23/17 05:00 Total Bilirubin 1.1 mg/dl (0.2-1.3) 03/22/17 13:15 AST 39 U/L (14-36) H 03/22/17 13:15 ALT 19 U/L (9-52) 03/22/17 13:15 Alkaline Phosphatase 62 U/L (38-126) 03/22/17 13:15 Troponin I < 0.0120 ng/mL (0.00-0.120) 03/23/17 05:00 Total Protein 9.8 G/DL (6.3-8.2) H 03/22/17 13:15 Albumin 5.3 g/dL (3.5-5.0) H 03/22/17 13:15 Globulin 4.5 gm/dL (2.2-3.9) H 03/22/17 13:15 Albumin/Globulin Ratio 1.2 (1.0-2.1) 03/22/17 13:15 - Hospital Course Hospital Course: 51 y.o. female with a PMHx of sarcoidosis admitted for acute intractable chest pain. EKG was unremarkable. CT-angiogram negative for Pulmonary Embolism. CXR negative for any acute pulmonary pathology. Pt complained also of burning epigastric pain and acid reflux. Pt was managed with Pepcid and reflux precautions. Pt discharged stable, with NO pain. Pt was instructed not to eat before bed and avoidance of fatty meals, caffeine and spicy food. -Omeprazole 20 mg PO daily was prescribed. -Pt was instructed to follow up w/ Dr Harper at [facility] on 04/05/17 at 10 am. - Date & Time of H&P Date of H&P: 03/22/17 Time of H&P: 19:06 Discharge Exam - Head Exam Head Exam: NORMAL INSPECTION - Eye Exam Eye Exam: EOMI, PERRL - Neck Exam Neck exam: Full Rom - Respiratory Exam Respiratory Exam: Clear to PA & Lateral, NORMAL BREATHING PATTERN, UNREMARKABLE - Cardiovascular Exam Cardiovascular Exam: REGULAR RHYTHM, +S1, +S2 - GI/Abdominal Exam GI & Abdominal Exam: Normal Bowel Sounds, Unremarkable. absent: Distended, Guarding Discharge Plan - Follow Up Plan Condition: STABLE Disposition: HOME/ ROUTINE Instructions: Chest Pain (DC), Gastroesophageal Reflux Disease (DC) Additional Instructions: -Follow up with PMD on 04/05/[address] at [address] Harper. -Follow a healthy diet with avoidance of fatty meals, caffeine and spicy food. -Avoid eating 2 hours before bed. -Take Omeprazole 20 mg Tab by mouth daily on an empty stomach for a few hours ( on awakening) and 30 minutes before eating. -Return to ER if severe chest pain, shortness of breath or palpitations.
--- NOTE | 2017-03-24 11:34 | CARD ---
APPROVED REPORT EKG Measurement Heart [id number] [id number] <Conclusion> Normal sinus rhythm Nonspecific ST abnormality Abnormal ECG
--- NOTE | 2017-03-24 11:38 | CARD ---
APPROVED REPORT EKG Measurement Heart [id number] 156P0 [id number] <Conclusion> Normal sinus rhythm Normal ECG
== END 2017-03-23 16:21 | disposition home or self-care (01) ==
LOC: H.ER 12:38 → H.ERHOLD 16:05 → H.TEL 22:25
PROVIDERS: ADMIT Family Medicine Geriatric Medicine; ATTEND Family Medicine Geriatric Medicine
DX: R07.89 Other chest pain (principal); R10.13 Epigastric pain; I10 Essential (primary) hypertension; F41.9 Anxiety disorder, unspecified; D86.9 Sarcoidosis, unspecified; K21.9 Gastro-esophageal reflux disease without esophagitis; K29.70 Gastritis, unspecified, without bleeding; E66.9 Obesity, unspecified; F17.200 Nicotine dependence, unspecified, uncomplicated; Z23 Encounter for immunization; Z79.82 Long term (current) use of aspirin
CPT/HCPCS: 36415; 71020; 71275; 80048; 80053; 81025; 84484; 85025; 85027; 96374; 99285; G0378; J1885; Q9967

== ENCOUNTER 2017-08-18 14:47 | Emergency (ER) | payer SELFPAY ==
--- NOTE | 2017-08-18 17:31 | RAD ---
HISTORY: cough COMPARISON: Comparison is made with 03/22/2017 TECHNIQUE: Chest PA and lateral FINDINGS: LUNGS: No active pulmonary disease. PLEURA: No significant pleural effusion identified. No pneumothorax apparent. CARDIOVASCULAR: Normal. OSSEOUS STRUCTURES: No significant abnormalities. VISUALIZED UPPER ABDOMEN: Normal. OTHER FINDINGS: None. IMPRESSION: No active disease. No significant interval change noted.
[2017-08-18] MEDS ORDERED: Albuterol-Ipratrop 3 mg / 0.5 (3 ml) UD IH STA (17:45)
[2017-08-18] MEDS ORDERED: Albuterol-Ipratrop 3 mg / 0.5 (3 ml) UD ONE (17:48)
--- NOTE | 2017-08-18 18:48 | ED PDOC ---
HPI: CCC, URI, Sore Throat Time Seen by Provider: 08/18/17 16:18 Chief Complaint (Nursing): Flu-like Symptoms Chief Complaint (Provider): Flu-like Symptoms History Per: Patient History/Exam Limitations: no limitations Onset/Duration Of Symptoms: Days (x 1 week) Current Symptoms Are (Timing): Still Present Sick Contacts (Context): None Additional Complaint(s): Patient presents to the ER complaining of 1 week of fever with cough, sore throat, body aches, chills, and headache. Otherwise: (-) SOB, (-) chest pain, (- ) N/V/D, (-) abdominal pain, (-) flank pain, (-) urinary symptoms, (-) recent travel, (-) sick contacts. PMD: Dr. Mani Hunter Past Medical History Reviewed: Historical Data, Nursing Documentation, Vital Signs Vital Signs: Last Vital Signs Temp 98.2 F 08/18/17 15:26 Pulse 88 08/18/17 15:26 Resp 20 08/18/17 15:26 BP 166/103 H 08/18/17 15:26 Pulse Ox 98 08/18/17 15:26 - Medical History PMH: Anxiety, HTN Denies: HIV, Chronic Kidney Disease - Surgical History Surgical History: Appendectomy - Family History Family History: States: Unknown Family Hx - Immunization History Hx Tetanus Toxoid Vaccination: No Hx Influenza Vaccination: No Hx Pneumococcal Vaccination: No - Home Medications Home Medications: Ambulatory Orders Medication Instructions Recorded HCTZ/Losartan Potassium [Hyzaar 1 tab PO DAILY 03/22/17 12.5 mg-50 mg] Naproxen [Naprosyn] 500 mg PO BID PRN 03/22/17 Albuterol 0.083% [Albuterol 3 ml IH Q4 #100 neb 08/18/17 Sulfate 3 Ml] Albuterol HFA [Ventolin HFA 90 2 puff IH [id number] #1 puff 08/18/17 mcg/actuation (8 g)] Guaifenesin 400 mg PO QID #20 tablet 08/18/17 Nebulizer [Aeroeclipse II] 1 each MC DAILY #1 each 08/18/17 - Allergies Allergies/Adverse Reactions: Allergies Allergy/AdvReac Type Severity Reaction Status Date / Time clarithromycin [From Biaxin] Allergy RASH Verified 08/18/17 15:26 Review of Systems ROS Statement: Except As Marked, All Systems Reviewed And Found Negative Constitutional: Positive for: Fever, Chills, Other (Body aches) ENT: Positive for: Throat Pain Cardiovascular: Negative for: Chest Pain Respiratory: Positive for: Cough. Negative for: Shortness of Breath Gastrointestinal: Negative for: Nausea, Vomiting, Abdominal Pain, Diarrhea Genitourinary Female: Negative for: Dysuria, Hematuria Neurological: Positive for: Headache Physical Exam - Reviewed Nursing Documentation Reviewed: Yes Vital Signs Reviewed: Yes - Physical Exam Comments: GENERAL APPEARANCE: Patient is awake, alert, oriented x 3, in no acute distress. SKIN: Warm, dry; (-) cyanosis, (-) rash. (-) Decubitus Ulcer EYES: (-) conjunctival pallor, (-) scleral icterus, (-) conjunctival hemorrhage. ENMT: Mucous membranes moist. TMs: (-) erythema. Airway patent: (-) stridor. Pharynx: (-) erythema, (-) exudate. NECK: (-) tenderness, (-) stiffness, (-) meningismus, (-) lymphadenopathy. CHEST AND RESPIRATORY: (-) accessory muscle use. Lungs: (-) rales, (-) rhonchi, (-) wheezes, (-) rub; breath sounds equal bilaterally. HEART AND CARDIOVASCULAR: (-) irregularity; (-) murmur, (-) gallop, (-) rub. ABDOMEN AND GI: Soft; (-) tenderness, (-) guarding; (-) organomegaly; (-) mass ; (-) CVA tenderness. EXTREMITIES: (-) deformity; (-) cellulitis, (-) lymphangitis; (-) subungual hemorrhage; (-) edema. NEURO AND PSYCH: Mental status as above; (-) focal findings. - ECG O2 Sat by Pulse Oximetry: 98 (RA) Pulse Ox Interpretation: Normal Medical Decision Making Medical Decision Making: Time: 16:33 Initial Plan: * Influenza A B * Chest X-Ray * Motrin 600mg * Duoneb treatment x1 * Peak Flow pre/post treatment * Reevaluation Labs reviewed: Flu negative. CXR: NAD, as read by PA. Reevaluation: Patient reports improvement of symptoms, and is ready to go home. Based on history, exam, and diagnostic results, plan will be for outpatient follow up. Advised to follow up with primary care physician in 1-2 days without fail. Advised to take medication as prescribed. Return to the emergency room at any time for any new or worsening symptoms. Patient states she fully agrees with and understands discharge instructions. States that she agrees with the plan and disposition. Verbalized and repeated discharge instructions and plan. I have given the patient opportunity to ask any additional questions. Scribe Attestation: Documented by Dorina Willoughby, acting as a scribe for Alexandra Dennis PA-C Provider Scribe Attestation: All medical record entries made by the Scribe were at my direction and personally dictated by me. I have reviewed the chart and agree that the record accurately reflects my personal performance of the history, physical exam, medical decision making, and the department course for this patient. I have also personally directed, reviewed, and agree with the discharge instructions and disposition. Disposition - Clinical Impression Clinical Impression: Bronchitis - Patient ED Disposition Is Patient to be Admitted: No Counseled Patient/Family Regarding: Studies Performed, Diagnosis, Need For Followup, Rx Given - Disposition Disposition: Routine/Home Disposition Time: 18:25 Condition: STABLE Additional Instructions: Thank you for letting us take care of you today. You were treated for acute bronchitis. The emergency medical care you received today was directed at your acute symptoms. If you were prescribed any medication, please fill it and take as directed. It may take several days for your symptoms to resolve. Return to the Emergency Department if your symptoms worsen, do not improve, or if you have any other problems. Please contact your doctor in 2 days for re-evaluation and follow up / or call one of the physicians/clinics you have been referred to that are listed on the Patient Visit Information form that is included in your discharge packet. Bring any paperwork you were given at discharge with you along with any medications you are taking to your follow up visit. Our treatment cannot replace ongoing medical care by a primary care provider (PCP) outside of the emergency department. [facility] your care today. Prescriptions: Albuterol HFA [Ventolin HFA 90 mcg/actuation (8 g)] 2 puff IH [id number] #1 puff Albuterol 0.083% [Albuterol Sulfate 3 Ml] 3 ml IH Q4 #100 neb Guaifenesin 400 mg PO QID #20 tablet Nebulizer [Aeroeclipse II] 1 each MC DAILY #1 each Instructions: Acute Bronchitis (ED) Forms: [employer] ([place]), [facility] ED School/Work Excuse Print Language: NORWEGIAN - POA Present On Arrival: None
[2017-08-18 20:03] VITALS: BP 130/72; PULSE 72; RESP 18; TEMP 98; O2SAT 100
== END 2017-08-18 20:04 | disposition home or self-care (01) ==
LOC: H.ER 14:47
DX: J40 Bronchitis, not specified as acute or chronic (principal); I10 Essential (primary) hypertension; F41.9 Anxiety disorder, unspecified

== ENCOUNTER 2018-04-20 14:41 | Observation (INO) | payer SELFPAY ==
[2018-04-20] MEDS ORDERED: Albuterol-Ipratrop 3 mg / 0.5 (3 ml) UD IH STA (15:11)
[2018-04-20] MEDS ORDERED: Sodium Chloride 0.9% 1,000 ML IV STA (15:11)
--- NOTE | 2018-04-20 15:17 | ED PDOC ---
HPI: Chest Pain Time Seen by Provider: 04/20/18 14:55 Chief Complaint (Nursing): Chest Pain Chief Complaint (Provider): Chest Pain History Per: Patient History/Exam Limitations: no limitations Onset/Duration Of Symptoms: Days (7) Additional Complaint(s): 52 years old female with history of hypertension and sarcoidosis presents to ER for evaluation of a productive cough with white sputum and congestion onset a week ago, and chest pain associated with shortness of breath that started 3 days ago. Patient reports pain radiates to left arm and hand with some tingling in fingers. She also complains of headache and ear pain at this time. Patient reports taking Aleeve this morning with no improvement. She denies any nausea, dizziness, abdominal pain, nausea or vomiting. Headache is not the worst in her life. No neck pain. No vision changes. Nasal congestion. PMD: Mani Hunter Past Medical History Reviewed: Historical Data, Nursing Documentation, Vital Signs Vital Signs: Last Vital Signs Temp 98.5 F 04/20/18 14:47 Pulse 81 04/20/18 14:47 Resp 16 04/20/18 14:47 BP 163/97 H 04/20/18 14:47 Pulse Ox 99 04/20/18 14:47 - Medical History PMH: Anxiety, HTN Denies: HIV, Chronic Kidney Disease Other PMH: sarcoidosis - Surgical History Surgical History: Appendectomy - Family History Family History: States: Unknown Family Hx - Living Arrangements Living Arrangements: With Family - Social History Alcohol: None Drugs: Denies - Immunization History Hx Tetanus Toxoid Vaccination: No Hx Influenza Vaccination: No Hx Pneumococcal Vaccination: No - Home Medications Home Medications: Ambulatory Orders Medication Instructions Recorded HCTZ/Losartan Potassium [Hyzaar 1 tab PO DAILY 03/22/17 12.5 mg-50 mg] Naproxen [Naprosyn] 500 mg PO BID PRN 03/22/17 Albuterol 0.083% [Albuterol 3 ml IH Q4 #100 neb 08/18/17 Sulfate 3 Ml] Albuterol HFA [Ventolin HFA 90 2 puff IH [id number] #1 puff 08/18/17 mcg/actuation (8 g)] Guaifenesin 400 mg PO QID #20 tablet 08/18/17 Nebulizer [Aeroeclipse II] 1 each MC DAILY #1 each 08/18/17 - Allergies Allergies/Adverse Reactions: Allergies Allergy/AdvReac Type Severity Reaction Status Date / Time clarithromycin [From Biaxin] Allergy RASH Verified 04/20/18 14:46 Review of Systems ROS Statement: Except As Marked, All Systems Reviewed And Found Negative ENT: Positive for: Ear Pain Cardiovascular: Positive for: Chest Pain Respiratory: Positive for: Cough, Shortness of Breath, Sputum (white) Gastrointestinal: Negative for: Nausea, Vomiting, Abdominal Pain Musculoskeletal: Positive for: Arm Pain (Left) Neurological: Positive for: Headache. Negative for: Dizziness Physical Exam - Reviewed Nursing Documentation Reviewed: Yes Vital Signs Reviewed: Yes - Physical Exam Appears: Positive for: Non-toxic, No Acute Distress Head Exam: Positive for: ATRAUMATIC, NORMOCEPHALIC Skin: Positive for: Normal Color, Warm, Dry Eye Exam: Positive for: Normal appearance, EOMI, PERRL ENT: Positive for: TM Is/Are (clear b/l), Nasal Congestion. Negative for: Pharyngeal Erythema, Tonsillar Exudate Neck: Positive for: Normal, Painless ROM, Supple Cardiovascular/Chest: Positive for: Regular Rate, Rhythm. Negative for: Murmur Respiratory: Positive for: Normal Breath Sounds. Negative for: Accessory Muscle Use, Wheezing Gastrointestinal/Abdominal: Positive for: Normal Exam, Soft. Negative for: Tenderness Back: Positive for: Normal Inspection. Negative for: L CVA Tenderness, R CVA Tenderness Extremity: Positive for: Normal ROM. Negative for: Tenderness, Pedal Edema, Calf Tenderness, Swelling Neurologic/Psych: Positive for: Alert, Oriented (x3) - Laboratory Results Result Diagrams: 04/20/18 15:34 04/20/18 15:34 Interpretation Of Abn Labs: no acute - ECG ECG: Positive for: Interpreted By Me, Viewed By Me ECG Rhythm: Positive for: Sinus Rhythm, Nonspecific Changes Interpretation Of Abn EKG: changed from old O2 Sat by Pulse Oximetry: 99 (RA) Pulse Ox Interpretation: Normal - Radiology X-Ray: Read By Radiologist X-Ray Interpretation: No Acute Disease - Progress ED Course And Treament: 1704: Stable. AAOx3. Pain controlled. Will give asa. Spoke with Dr. Mckeon. Will admit tele obs. Medical Decision Making Medical Decision Making: Time: 151 Initial Plan: --EKG --BTN --CMP --Troponin I --CBC --Chest X-Ray --Albuterol 3 ml INH --NaCl 1,000 ml IV --Toradol 15 mg IVP --Tessalon 100 mg PO --Peak flow pre/post treatment --Influenza A B 1608 Chest X-Ray FINDINGS: LUNGS: No active pulmonary disease. PLEURA: No significant pleural effusion identified, no pneumothorax apparent. CARDIOVASCULAR: No radiographic findings to suggest acute or significant cardiovascular disease. OSSEOUS STRUCTURES: No significant abnormalities. VISUALIZED UPPER ABDOMEN: Normal. OTHER FINDINGS: None. IMPRESSION: No active disease. No significant interval change compared to the prior examination(s). Scribe Attestation: Documented by Tasha Stout, acting as a scribe for Flip Sterling MD. Provider Scribe Attestation: All medical record entries made by the Scribe were at my direction and personally dictated by me. I have reviewed the chart and agree that the record accurately reflects my personal performance of the history, physical exam, me dical decision making, and the department course for this patient. I have also personally directed, reviewed, and agree with the discharge instructions and disposition. Disposition - Clinical Impression Clinical Impression: Chest pain, EKG abnormalities - Patient ED Disposition Is Patient to be Admitted: Yes Counseled Patient/Family Regarding: Studies Performed, Diagnosis - Disposition Disposition Time: 16:05 Condition: FAIR - Pt Status Changed To: Hospital Disposition Of: Observation - POA Present On Arrival: None
[2018-04-20 15:39] LABS: BASO # 0.1 K/uL (0.0-0.2); EOS # 0.2 K/uL (0.0-0.7); EOS % 3.4 % (0.0-4.0); HEMOGLOBIN 11.6 g/dL (12.0-16.0); LYMPH # 1.1 K/uL (1.0-4.3); LYMPH % 18.2 % (20.0-40.0); MEAN CELL VOLUME 84.4 fl (81.0-99.0); MEAN CORPUSCULAR HEMOGLOBIN 28.3 pg (27.0-31.0); MEAN CORPUSCULAR HGB CONC 33.5 g/dL (33.0-37.0); MEAN PLATELET VOLUME 7.7 fl (7.2-11.7); MONO # 0.6 K/uL (0.0-0.8); MONO % 9.5 % (0.0-10.0); NEUT % 67.9 % (50.0-75.0); RBC 4.1 Mil/uL (3.80-5.20); RED CELL DISTRIBUTION WIDTH 14.6 % (11.5-14.5); WHITE BLOOD COUNT 5.9 K/uL (4.8-10.8)
[2018-04-20] MEDS ORDERED: Albuterol-Ipratrop 3 mg / 0.5 (3 ml) UD ONE (15:41)
[2018-04-20 15:54] LABS: ALT/SGPT 27 U/L (9-52); AST/SGOT 27 U/L (14-36); BLOOD UREA NITROGEN 19 mg/dl (7-17); CALCIUM 9.4 mg/dL (8.4-10.2); GFR NON-AFRICAN AMERICAN 53
[2018-04-20 16:03] LABS: B-TYPE NATRIURETIC PEPTIDE 98.2 pg/ml (0-900)
--- NOTE | 2018-04-20 16:10 | RAD ---
Date of service: 04/20/2018 HISTORY: Dyspnea. COMPARISON: 08/18/2017. FINDINGS: LUNGS: No active pulmonary disease. PLEURA: No significant pleural effusion identified, no pneumothorax apparent. CARDIOVASCULAR: No radiographic findings to suggest acute or significant cardiovascular disease. OSSEOUS STRUCTURES: No significant abnormalities. VISUALIZED UPPER ABDOMEN: Normal. OTHER FINDINGS: None. IMPRESSION: No active disease. No significant interval change compared to the prior examination(s).
--- NOTE | 2018-04-20 18:45 | CP.PCM.HP ---
<Jessa Weldon - Last Filed: 04/20/18 19:15> History of Present Illness - History of Present Illness History of Present Illness: 52 yr old F presents to ED with complaint of chest pain x 3 days. PMHx includes HTN, sarcoidosis and anxiety. Associated symptoms include nasal congestion, headache, productive cough (clear sputum) and chills x 1 week, left shoulder pain x 3 days. Chest pain is in mid-upper chest, worsened by cough, not alleviated by Aleve. Patient reports taking Nyquil and sudafed with mild alleviation of nasal congestion. Denies nausea, vomiting, diarrhea, weakness, dizziness or visual changes. LMP: 05/2017 PMD: [facility] (last visit 6 months ago, next appt 05/04/18) Specialists: has referral for pulmonolgy and dermatology at [facility], appt scheduled for 05/09/18 PMHx: HTN, sarcoidosis and anxiety SurgHx: appendectomy, laparoscopy-endometriosis FMHx: mother is 80 yrs old-IDDM and ovarian cancer, hx 2 sisters with hx breast and ovarian cancer, father at 80 yrs old-prostate cancer SocHx: denies tobacco, social Etoh, denies drugs Medications: HCTZ/Losartan 12.5mg/ 50mg PO QD Allergies: clarithromycin (Biaxin) ED course: BP 163/97 mmHg, HR 81 bpm, Temp 98.5 F, Resp rate 16, SpO2 99% -EKG: sinus rhythm, non specific ST-T changes (change in EKG from 03/23/17) -CXR: no active disease -CBC: within normal limits -CMP: BUN 19/Cr 1.1, rest within normal limits -troponin < 0.0120 -proBNP 98.2 -influenza A, B negative -ED treatment: Duoneb x 1, Aspirin 325mg PO once, Tessalon perles 100mg PO once, NS 1L bolus, Toradol 15mg IV once -repeat BP in ED 138/80 mmHg Present on Admission - Present on Admission Any Indicators Present on Admission: No History of DVT/PE: No History of Uncontrolled Diabetes: No Urinary Catheter: No Decubitus Ulcer Present: No History Surgical Site Infection Following: None Review of Systems - Constitutional Constitutional: Chills. absent: Anorexia, Weakness - EENT Eyes: absent: Change in Vision Ears: absent: Dizziness Nose/Mouth/Throat: Nasal Congestion. absent: Nasal Discharge, Sore Throat - Cardiovascular Cardiovascular: Chest Pain. absent: Dyspnea, Edema, Palpitations, Syncope - Respiratory Respiratory: Cough, Pain with Coughing. absent: Wheezing - Gastrointestinal Gastrointestinal: absent: Abdominal Pain, Diarrhea, Nausea, Vomiting - Genitourinary Genitourinary: absent: Dysuria - Musculoskeletal Musculoskeletal: Radiating Pain into Limb (left shoulder). absent: Numbness, Tingling - Integumentary Integumentary: absent: Wounds - Neurological Neurological: absent: Weakness - Psychiatric Psychiatric: Anxiety - Endocrine Endocrine: absent: Polydipsia, Polyphagia - Hematologic/Lymphatic Hematologic: absent: Easy Bleeding, Easy Bruising Past Patient History - Past Medical History & Family History Past Medical History?: Yes - Past Social History Alcohol: None Drugs: Denies - CARDIAC Hx Hypertension: Yes - PULMONARY Hx Respiratory Disorders: No - NEUROLOGICAL Hx Neurological Disorder: No - HEENT Hx HEENT Problems: No - RENAL Hx Chronic Kidney Disease: No - ENDOCRINE/METABOLIC Hx Endocrine Disorders: Yes (sarcoidosis) - HEMATOLOGICAL/ONCOLOGICAL Hx Human Immunodeficiency Virus (HIV): No - INTEGUMENTARY Hx Dermatological Problems: No - MUSCULOSKELETAL/RHEUMATOLOGICAL Hx Musculoskeletal Disorders: No - GENITOURINARY/GYNECOLOGICAL Hx Genitourinary Disorders: No - PSYCHIATRIC Hx Anxiety: Yes - SURGICAL HISTORY Hx Appendectomy: Yes - ANESTHESIA Hx Anesthesia: Yes Hx Anesthesia Reactions: No Meds Allergies/Adverse Reactions: Allergies Allergy/AdvReac Type Severity Reaction Status Date / Time clarithromycin [From Biaxin] Allergy RASH Verified 04/20/18 14:46 Physical Exam - Constitutional Appears: No Acute Distress - Head Exam Head Exam: ATRAUMATIC, NORMOCEPHALIC - Eye Exam Eye Exam: EOMI, PERRL - ENT Exam ENT Exam: Mucous Membranes Moist - Neck Exam Neck exam: Positive for: Full Rom. Negative for: Lymphadenopathy - Respiratory Exam Respiratory Exam: Clear to Auscultation Bilateral, NORMAL BREATHING PATTERN. absent: Rales, Rhonchi, Wheezes - Cardiovascular Exam Cardiovascular Exam: REGULAR RHYTHM, +S1, +S2 - GI/Abdominal Exam GI & Abdominal Exam: Normal Bowel Sounds, Soft (obese). absent: Distended, Guarding, Tenderness - Extremities Exam Extremities exam: Positive for: full ROM, pedal pulses present. Negative for: calf tenderness, pedal edema - Back Exam Back exam: absent: CVA tenderness (L), CVA tenderness (R) - Neurological Exam Neurological exam: Alert, CN II-XII Intact, Oriented x3 - Psychiatric Exam Psychiatric exam: Normal Affect, Normal Mood - Skin Skin Exam: Dry, Normal Color, Warm Results - Vital Signs Recent Vital Signs: Last Vital Signs Temp 98.5 F 04/20/18 14:47 Pulse 81 04/20/18 14:47 Resp 16 04/20/18 14:47 BP 163/97 H 04/20/18 14:47 Pulse Ox 99 04/20/18 17:05 - Labs Result Diagrams: 04/20/18 15:34 04/20/18 15:34 Labs: Laboratory Results - last 24 hr 04/20/18 04/20/18 04/20/18 15:34 15:34 15:35 WBC 5.9 RBC 4.10 Hgb 11.6 L Hct 34.6 MCV 84.4 MCH 28.3 MCHC 33.5 RDW 14.6 H Plt Count 293 MPV 7.7 Neut % (Auto) 67.9 Lymph % (Auto) 18.2 L [place] % (Auto) 9.5 Eos % (Auto) 3.4 Baso % (Auto) 1.0 Neut # (Auto) 4.0 Lymph # (Auto) 1.1 [place] # (Auto) 0.6 Eos # (Auto) 0.2 Baso # (Auto) 0.1 Sodium 141 Potassium 3.7 Chloride 107 Carbon Dioxide 25 Anion Gap 13 BUN 19 H Creatinine 1.1 Est GFR ( Amer) > 60 Est GFR (Non-Af Amer) 53 Random Glucose 100 Calcium 9.4 Total Bilirubin 0.3 AST 27 ALT 27 Alkaline Phosphatase 61 Troponin I < 0.0120 NT-Pro-B Natriuret Pep 98.2 Total Protein 8.0 Albumin 4.0 Globulin 4.0 H Albumin/Globulin Ratio 1.0 Influenza Typ A,B (EIA) Negative for flu a/b Assessment & Plan - Assessment and Plan (Free Text) Assessment: 52 yr old F admitted for chest pain, r/o ACS with PMHx hypertension, sarcoidosis and anxiety. 1. Chest pain -acute, r/o ACS vs musculoskeletal chest pain -1st troponin <0.0120, EKG changed compared to prior (nonspecific ST-T changes) -CXR: no active disease -admit to telemetry-continuos cardiac monitoring -f/u serial troponin Q8 -f/u repeat EKG in AM 2. Hypertension -chronic, controlled -continue home medication (HCTZ/Losartan 12.5mg/ 50mg PO QD) -monitor BP 3. Upper respiratory infection -likely viral: cough and nasal congestion x 1 week, afebrile, no leukocytosis -CXR: no active disease -influenza A, B negative -Robitussin PRN 4. DVT prophylaxis -Lovenox 40mg SC QD - Date & Time Date: 04/20/18 Time: 18:45 <Joseph Enamorado - Last Filed: 04/21/18 03:36> Results - Vital Signs Recent Vital Signs: Last Vital Signs Temp 98 F 04/20/18 23:32 Pulse 78 04/20/18 23:32 Resp 18 04/20/18 23:32 BP 122/81 04/20/18 23:32 Pulse Ox 100 04/20/18 23:32 - Labs Result Diagrams: 04/20/18 15:34 04/20/18 15:34 Labs: Laboratory Results - last 24 hr 04/20/18 04/20/18 04/20/18 15:34 15:34 15:35 WBC 5.9 RBC 4.10 Hgb 11.6 L Hct 34.6 MCV 84.4 MCH 28.3 MCHC 33.5 RDW 14.6 H Plt Count 293 MPV 7.7 Neut % (Auto) 67.9 Lymph % (Auto) 18.2 L [place] % (Auto) 9.5 Eos % (Auto) 3.4 Baso % (Auto) 1.0 Neut # (Auto) 4.0 Lymph # (Auto) 1.1 [place] # (Auto) 0.6 Eos # (Auto) 0.2 Baso # (Auto) 0.1 Sodium 141 Potassium 3.7 Chloride 107 Carbon Dioxide 25 Anion Gap 13 BUN 19 H Creatinine 1.1 Est GFR ( Amer) > 60 Est GFR (Non-Af Amer) 53 Random Glucose 100 Calcium 9.4 Total Bilirubin 0.3 AST 27 ALT 27 Alkaline Phosphatase 61 Troponin I < 0.0120 NT-Pro-B Natriuret Pep 98.2 Total Protein 8.0 Albumin 4.0 Globulin 4.0 H Albumin/Globulin Ratio 1.0 Influenza Typ A,B (EIA) Negative for flu a/b Attending/Attestation - Attestation I have personally seen and examined this patient.: Yes I have fully participated in the care of the patient.: Yes I have reviewed all pertinent clinical information: Yes Notes (Text): 04/21/18 03:25 I saw, examined and discussed this patient with Dr Weldon. I agree with the assessment and Plan outlined. This is a 52 years old female with hx of Anxiety, Sarcoidosis and HTN. she came in with 3 days of left side chest pain radiating to the left shoulder and left upper extremity. The pain increases with palpation and on lifting the left shoulder.Troponin, EKG and BNP are within normal limits. A&P #. Chest pain r/o ACS and Radiculopathy. the patient has hx of Sarcoidoisis - Telemetry monitoring - Serial Troponin - Serial EKG - Lipid - ASA - Toradol for Pain #. HTN - HCTZ/ Losartan - Follow blood pressures Joseph Enamorado MD
[2018-04-20] MEDS ORDERED: guaiFENesin DM 100 mg-10 mg/5 ml UD PO PRN (19:41)
[2018-04-20] MEDS ORDERED: Dextrose 5%/0.9% NS 1,000 ML IV SCH (20:00)
[2018-04-21] MEDS ORDERED: Albuterol-Ipratrop 3 mg / 0.5 (3 ml) UD INH STA (04:39)
[2018-04-21] MEDS ORDERED: Albuterol-Ipratrop 3 mg / 0.5 (3 ml) UD ONE ×2 (04:41→08:27)
[2018-04-21] MEDS ORDERED: Albuterol-Ipratrop 3 mg / 0.5 (3 ml) UD INH SCH (08:00)
[2018-04-21] MEDS ORDERED: guaiFENesin-Codeine 100-10mg/5ml Syrup (5 ml) UD PO PRN (08:15)
[2018-04-21] MEDS ORDERED: guaiFENesin-Codeine 100-10mg/5ml Syrup (5 ml) UD ONE (08:29)
[2018-04-21] MEDS ORDERED: Enoxaparin 40 mg Syringe SC SCH (09:00)
[2018-04-21] MEDS ORDERED: methylPREDNISolone 40 MG in Sodium Chloride 0.9% 50 ML IVPB SCH (09:00)
[2018-04-21] MEDS ORDERED: MethylPREDNISolone 40 mg Vial IVP SCH (09:00)
[2018-04-21] MEDS ORDERED: MethylPREDNISolone 40 mg Vial ONE (09:07)
--- NOTE | 2018-04-21 09:10 | CARD ---
APPROVED REPORT Date of service: 04/21/2018 EKG Measurement Heart [id number] <Conclusion> Normal sinus rhythm Normal ECG
[2018-04-21] MEDS ORDERED: HCTZ/Losartan 12.5/50 Tab PO SCH (10:00)
--- NOTE | 2018-04-21 10:21 | CP.PCM.DIS ---
Addendum entered and electronically signed by Leonard Ramon MD 04/21/18 12:38: Negative Troponin x 3 Original Note: <Leonard Ramon - Last Filed: 04/21/18 12:37> Provider - Provider Date of Admission: 04/20/18 17:02 Attending physician: Shelbi Mckeon MD Primary care physician: [facility] Consults: None Time Spent in preparation of Discharge (in minutes): 40 Diagnosis - Discharge Diagnosis (1) Non-cardiac chest pain Status: Acute Comment: - EKG: sinus rhythm, non specific ST-T changes (change in EKG from 03/23/17). - Troponin x3 negative. - Will send patient home with Aspirin. - OTC Tylenol 650, Q8 PRN (2) Musculoskeletal arm pain Status: Acute Comment: - OTC Tylenol. - Follow up with PMD (3) Cough Status: Acute Comment: Upper respiratory infection. - Negative CXR. - C/w Rubitussin (4) Hypertension Status: Acute Comment: -continue home medication (HCTZ/Losartan 12.5mg/ 50mg PO QD) Hospital Course - Lab Results Lab Results: Most Recent Lab Values WBC 5.9 K/uL (4.8-10.8) 04/20/18 15:34 RBC 4.10 Mil/uL (3.80-5.20) 04/20/18 15:34 Hgb 11.6 g/dL (12.0-16.0) L 04/20/18 15:34 Hct 34.6 % (34.0-47.0) 04/20/18 15:34 MCV 84.4 fl (81.0-99.0) 04/20/18 15:34 MCH 28.3 pg (27.0-31.0) 04/20/18 15:34 MCHC 33.5 g/dL (33.0-37.0) 04/20/18 15:34 RDW 14.6 % (11.5-14.5) H 04/20/18 15:34 Plt Count 293 K/uL (130-400) 04/20/18 15:34 MPV 7.7 fl (7.2-11.7) 04/20/18 15:34 Neut % (Auto) 67.9 % (50.0-75.0) 04/20/18 15:34 Lymph % (Auto) 18.2 % (20.0-40.0) L 04/20/18 15:34 [place] % (Auto) 9.5 % (0.0-10.0) 04/20/18 15:34 Eos % (Auto) 3.4 % (0.0-4.0) 04/20/18 15:34 Baso % (Auto) 1.0 % (0.0-2.0) 04/20/18 15:34 Neut # (Auto) 4.0 K/uL (1.8-7.0) 04/20/18 15:34 Lymph # (Auto) 1.1 K/uL (1.0-4.3) 04/20/18 15:34 [place] # (Auto) 0.6 K/uL (0.0-0.8) 04/20/18 15:34 Eos # (Auto) 0.2 K/uL (0.0-0.7) 04/20/18 15:34 Baso # (Auto) 0.1 K/uL (0.0-0.2) 04/20/18 15:34 Sodium 141 mmol/l (132-148) 04/20/18 15:34 Potassium 3.7 MMOL/L (3.6-5.0) 04/20/18 15:34 Chloride 107 mmol/L (98-107) 04/20/18 15:34 Carbon Dioxide 25 mmol/L (22-30) 04/20/18 15:34 Anion Gap 13 (10-20) 04/20/18 15:34 BUN 19 mg/dl (7-17) H 04/20/18 15:34 Creatinine 1.1 mg/dl (0.7-1.2) 04/20/18 15:34 Est GFR ( Amer) > 60 04/20/18 15:34 Est GFR (Non-Af Amer) 53 04/20/18 15:34 Random Glucose 100 mg/dL (65-105) 04/20/18 15:34 Calcium 9.4 mg/dL (8.4-10.2) 04/20/18 15:34 Total Bilirubin 0.3 mg/dl (0.2-1.3) 04/20/18 15:34 AST 27 U/L (14-36) 04/20/18 15:34 ALT 27 U/L (9-52) 04/20/18 15:34 Alkaline Phosphatase 61 U/L (38-126) 04/20/18 15:34 Troponin I < 0.0120 ng/mL (0.00-0.120) 04/21/18 08:22 NT-Pro-B Natriuret Pep 98.2 pg/ml (0-900) 04/20/18 15:34 Total Protein 8.0 G/DL (6.3-8.2) 04/20/18 15:34 Albumin 4.0 g/dL (3.5-5.0) 04/20/18 15:34 Globulin 4.0 gm/dL (2.2-3.9) H 04/20/18 15:34 Albumin/Globulin Ratio 1.0 (1.0-2.1) 04/20/18 15:34 Influenza Typ A,B (EIA) Negative for flu a/b (NEGATIVE) 04/20/18 15:35 - Hospital Course Hospital Course: This is 52 y/o F with PMH of HTN, sarcoidosis and anxiety admitted to the [facility] for chest pain, r/o ACS. After admission, EKG: sinus rhythm, non specific ST-T changes (change in EKG from 03/23/17), negative troponin x2 (will f/u 3rd trop), s/p toradol, tylenol and Robitussin for pain. Patient was also c/o cough, wheezing and shoulder pain. S/p Solumedrol and Duoneb treatments, Patient reports improved left shoulder pain. VS reviewed, afebrile, PE: AAOx3, normal CV and pulm exam. Patient was discharged home with Tylenol PRN, Robitussin and Aspirin and instructed to follow up with PMD. New medication: Aspirin and Robitussin Home medications: C/w HCTZ-Losartan Discharge Exam - Head Exam Head Exam: ATRAUMATIC, NORMOCEPHALIC - Eye Exam Eye Exam: Normal appearance Pupil Exam: NORMAL ACCOMODATION - ENT Exam ENT Exam: Mucous Membranes Moist - Neck Exam Neck exam: Normal Inspection - Respiratory Exam Respiratory Exam: Chest Wall Tenderness (mild on left upper chest), Clear to PA & Lateral, NORMAL BREATHING PATTERN. absent: Accessory Muscle Use, Decreased Breath Sounds, Wheezes, Respiratory Distress - Cardiovascular Exam Cardiovascular Exam: REGULAR RHYTHM, +S1, +S2 - GI/Abdominal Exam GI & Abdominal Exam: Normal Bowel Sounds, Soft, Unremarkable. absent: Tenderness - Extremities Exam Extremities exam: normal inspection - Back Exam Back exam: absent: CVA tenderness (L), CVA tenderness (R) - Neurological Exam Neurological exam: Alert, CN II-XII Intact, Normal Gait, Oriented x3 - Psychiatric Exam Psychiatric exam: Normal Affect - Skin Skin Exam: Normal Color Discharge Plan - Discharge Medications Prescriptions: Aspirin [Aspirin EC] 325 mg PO DAILY #30 tablet. RX: guaiFENesin/Dextromethorphan [Robitussin DM] 5 ml PO Q6 PRN 3 Days udc PRN Reason: Cough - Follow Up Plan Condition: FAIR Disposition: HOME/ ROUTINE Instructions: Chest Pain That Is Not Caused by the Heart (DC) Additional Instructions: Follow up with PMD in a week for shoulder pain C/w home medications, HCTZ-Losartan Pain control, Motrin 600 mg every 6 hours as needed for pain. Use warm compress to alleviate the pain. Rx for robitussin and Aspirin given to the patient Referrals: [facility] [Outside] <Jermaine Brown D - Last Filed: 04/21/18 14:14> Provider - Provider Date of Admission: 04/20/18 17:02 Attending physician: Shelbi Mckeon MD Hospital Course - Lab Results Lab Results: Most Recent Lab Values WBC 5.9 K/uL (4.8-10.8) 04/20/18 15:34 RBC 4.10 Mil/uL (3.80-5.20) 04/20/18 15:34 Hgb 11.6 g/dL (12.0-16.0) L 04/20/18 15:34 Hct 34.6 % (34.0-47.0) 04/20/18 15:34 MCV 84.4 fl (81.0-99.0) 04/20/18 15:34 MCH 28.3 pg (27.0-31.0) 04/20/18 15:34 MCHC 33.5 g/dL (33.0-37.0) 04/20/18 15:34 RDW 14.6 % (11.5-14.5) H 04/20/18 15:34 Plt Count 293 K/uL (130-400) 04/20/18 15:34 MPV 7.7 fl (7.2-11.7) 04/20/18 15:34 Neut % (Auto) 67.9 % (50.0-75.0) 04/20/18 15:34 Lymph % (Auto) 18.2 % (20.0-40.0) L 04/20/18 15:34 [place] % (Auto) 9.5 % (0.0-10.0) 04/20/18 15:34 Eos % (Auto) 3.4 % (0.0-4.0) 04/20/18 15:34 Baso % (Auto) 1.0 % (0.0-2.0) 04/20/18 15:34 Neut # (Auto) 4.0 K/uL (1.8-7.0) 04/20/18 15:34 Lymph # (Auto) 1.1 K/uL (1.0-4.3) 04/20/18 15:34 [place] # (Auto) 0.6 K/uL (0.0-0.8) 04/20/18 15:34 Eos # (Auto) 0.2 K/uL (0.0-0.7) 04/20/18 15:34 Baso # (Auto) 0.1 K/uL (0.0-0.2) 04/20/18 15:34 Sodium 141 mmol/l (132-148) 04/20/18 15:34 Potassium 3.7 MMOL/L (3.6-5.0) 04/20/18 15:34 Chloride 107 mmol/L (98-107) 04/20/18 15:34 Carbon Dioxide 25 mmol/L (22-30) 04/20/18 15:34 Anion Gap 13 (10-20) 04/20/18 15:34 BUN 19 mg/dl (7-17) H 04/20/18 15:34 Creatinine 1.1 mg/dl (0.7-1.2) 04/20/18 15:34 Est GFR ( Amer) > 60 04/20/18 15:34 Est GFR (Non-Af Amer) 53 04/20/18 15:34 Random Glucose 100 mg/dL (65-105) 04/20/18 15:34 Calcium 9.4 mg/dL (8.4-10.2) 04/20/18 15:34 Total Bilirubin 0.3 mg/dl (0.2-1.3) 04/20/18 15:34 AST 27 U/L (14-36) 04/20/18 15:34 ALT 27 U/L (9-52) 04/20/18 15:34 Alkaline Phosphatase 61 U/L (38-126) 04/20/18 15:34 Troponin I < 0.0120 ng/mL (0.00-0.120) 04/21/18 11:37 NT-Pro-B Natriuret Pep 98.2 pg/ml (0-900) 04/20/18 15:34 Total Protein 8.0 G/DL (6.3-8.2) 04/20/18 15:34 Albumin 4.0 g/dL (3.5-5.0) 04/20/18 15:34 Globulin 4.0 gm/dL (2.2-3.9) H 04/20/18 15:34 Albumin/Globulin Ratio 1.0 (1.0-2.1) 04/20/18 15:34 Influenza Typ A,B (EIA) Negative for flu a/b (NEGATIVE) 04/20/18 15:35 Attending/Attestation - Attestation I have personally seen and examined this patient.: Yes I have fully participated in the care of the patient.: Yes I have reviewed all pertinent clinical information, including history, physical exam and plan: Yes
--- NOTE | 2018-04-21 10:53 | CARD ---
APPROVED REPORT Date of service: 04/20/2018 EKG Measurement Heart [id number] <Conclusion> Normal sinus rhythm Nonspecific ST and T wave abnormality Abnormal ECG
[2018-04-21] MEDS ORDERED: Influenza Vaccine 60 MCG/0.5 ML SYR (3 yr & up) IM ONE (11:26)
[2018-04-21] MEDS ORDERED: Pneumococcal 23-Valent Vaccine IM ONE (11:30)
[2018-04-21 13:25] VITALS: BP 139/89; PULSE 82; RESP 20; TEMP 98.3; O2SAT 97
== END 2018-04-21 15:10 | disposition home or self-care (01) ==
LOC: H.ER 14:41 → H.ERHOLD 17:02 → H.TEL 04-21 10:02
PROVIDERS: ADMIT Hospitalist; ATTEND Hospitalist
DX: R07.89 Other chest pain (principal); Z23 Encounter for immunization; D86.9 Sarcoidosis, unspecified; I10 Essential (primary) hypertension; J06.9 Acute upper respiratory infection, unspecified; Z80.41 Family history of malignant neoplasm of ovary; Z90.49 Acquired absence of other specified parts of digestive tract; F41.9 Anxiety disorder, unspecified; M25.512 Pain in left shoulder; M79.603 Pain in arm, unspecified; R94.31 Abnormal electrocardiogram [ECG] [EKG]
CPT/HCPCS: 36415; 71045; 80053; 83880; 84484; 85025; 87804; 90471; 90472; 90674; 90732; 93005; 96361; 96372; 96374; 96375; 96376; 99285; G0378; J1650; J1885; J2920; J7030; J7042